=== PATIENT | male | born 1945 | race Caucasian/White ===

== ENCOUNTER 2017-09-08 07:38 | Emergency (ER) | payer OTHER ==
[~2017-09-08] VITALS: Ht 170.2 cm; Wt 80.1 kg
[2017-09-08 07:42] VITALS: BP 118/83
[2017-09-08] MEDS ORDERED: FEBU40TA PO (08:11)
== END 2017-09-08 09:53 | disposition home or self-care (01) ==
LOC: ED 08:43
DX: S46.911A Strain of unspecified muscle, fascia and tendon at shoulder and upper arm level, right arm, initial encounter (principal); S43.401A Unspecified sprain of right shoulder joint, initial encounter; Z87.891 Personal history of nicotine dependence; W01.0XXA Fall on same level from slipping, tripping and stumbling without subsequent striking against object, initial encounter; Y93.89 Activity, other specified; Y99.0 Civilian activity done for income or pay; Y92.69 Other specified industrial and construction area as the place of occurrence of the external cause
CPT/HCPCS: 72072; 99284